=== PATIENT | female | born 1940 ===

== ENCOUNTER → 2018-09-29 10:03 | Outpatient (CLI) | payer OTHER, SELFPAY ==
--- NOTE | 2018-09-29 | DI.MRI.S_ITS ---
PROCEDURE: MR THORACIC SPINE WO CON INDICATIONS: PAIN IN THORACIC SPINE TECHNIQUE: Noncontrast sagittal T1 spine echo and T2 fast spin echo, sagittal STIR, axial T1 and T2 fast spin echo through the thoracic spine. COMPARISON: None. FINDINGS: Image quality: Excellent. Alignment and Curvature: There is normal bony alignment. Bone Marrow: Marrow is of normal overall signal. No acute vertebral body compression fractures. Spinal Cord: Visualized spinal cord is normal in size and signal. Paraspinous Soft Tissues: No paravertebral masses. Miscellaneous: On axial images, central canal and foramina appear widely patent at all scanned levels. Mild disc bulge is present at C7-T1. Minimal disc bulge is present at T2-3, T7-8, T8-9, T10-11 and, T11-12. IMPRESSION: 1. Minimal scattered disc bulges throughout the thoracic spine without spinal stenosis or foraminal narrowing. The lobulated T2 hyperintensity within the hepatic dome is noted measuring 22 mm and most suggestive of cyst. Dictated by: Ashley Howard M.D. on 09/29/2018 at 13:10 Approved by: Ashley Howard M.D. on 09/29/2018 at 13:18
== END ==
PROVIDERS: PCP Family Medicine; Visit Provider Family Medicine
DX: M54.6 Pain in thoracic spine (principal); M50.23 Other cervical disc displacement, cervicothoracic region
CPT/HCPCS: 72146